=== PATIENT | male | born 1970 | race Caucasian/White ===

== ENCOUNTER 2016-12-24 14:05 | Emergency (ER) | payer OTHER ==
--- NOTE | 2016-12-24 14:58 | ED ORDER SUMMARY ---
..... Patient: BLAZE RICHARDSON OrderSheet [facility] VisitID: [id number] [address] [place] [address] 46y, M Registration Date/Time: 12/24/2016 ORDER SHEET Weight: 77.1 kg (stated) Allergies: No Known Drug Allergy GENERAL ORDERS: MEDICATION ORDERS: Tramadol PO 50 mg (NOW) (14:56 12/24/2016 Mike Montiel) (15:15 Valerie Porter) IV FLUIDS: ORDER SHEET NOTES: [Electronically signed by Mattie Nelson P.A.-C (15:05 12/24/2016)] [Electronically signed by Josesito Ricci R.N. (15:24 12/24/2016)] [Electronically locked/signed by Josesito Ricci R.N. (15:24 12/24/2016)]
--- NOTE | 2016-12-24 14:58 | ED NURSING NOTES ---
Clinical Report - Nurses [facility] [address] [place] [address] 12/24/2016 14:10 Patient: BLAZE RICHARDSON TRIAGE Triage time 14:30 Dec 24 2016. Acuity: LEVEL 3. Chief Complaint: BACK PAIN. Alert. THERESA COMA SCORE: Blackwell Coma Scale: 15- eyes open spontaneously (4); best verbal response- oriented x 4 (5); best motor response- obeys commands (6). --14:46 Josesito Ricci R.N. 14:33 12/24/16. BP: 114/76. HR: 72. RR: 16. O2 saturation: 100% on room air. Temp: 98.3 F. Pain level now: 10. Additional comments: Back pain. --14:46 Josesito Ricci R.N. Weight: 77.1 kg stated. Height/Length: 70 inches Per Patient. BMI: 24.4. --14:33 Josesito Ricci R.N. Medications None. --14:39 Josesito Ricci R.N. Allergies No Known Drug Allergy. --14:40 Josesito Ricci R.N. Medication/allergy information source: the patient. --14:46 Josesito Ricci R.N. History Arrived by private vehicle. Historian: patient. Unaccompanied. Primary physician (none). ( Back Pain one his (R) side low back from a recent fall about 6-7 days ago. Pt states that he is Bipolar and the pain makes his anxiety more intolerable.). Onset. (about 6 days ago). He has had mild trouble walking (Too painful to walk very far.). History of recent trauma (moderate)- fall. Occurred at home. 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 PAST MEDICAL HX: Tetanus status: unknown. Immunizations: status is unknown. SURGERY HX: No history of previous surgery. SOCIAL HX: Light tobacco smoker (cigarette)- less than 1/2 a pack per day. No alcohol use or drug use. No infectious disease exposure. ABUSE ASSESSMENT: No report of abuse. FALL RISK ASSESSMENT: Fall risk assessment completed. No fall risk identified. NUTRITIONAL RISK ASSESSMENT: The nutritional risk assessment revealed no deficiencies. FUNCTIONAL ASSESSMENT: Functional assessment: no impairments noted. LEARNING NEEDS ASSESSMENT: The learning needs assessment revealed no barriers. SKIN INTEGRITY ASSESSMENT: Skin integrity risk assessment completed. No skin integrity risk identified. --14:46 Josesito Ricci R.N. PROBLEMS: Schizophrenia. Anxiety Reaction. Abscess. Back Injury. Back Pain. Neck Pain. --14:42 Josesito Ricci R.N. ADDITIONAL SURGERIES: Dental Surgery. --14:42 Josesito Ricci R.N. Interventions ID band on patient. To treatment room. --14:46 Josesito Ricci R.N. PHYSICAL ASSESSMENT Ambulatory to room. GENERAL / NEURO / PSYCH: Alert. Oriented X 4. RESPIRATORY: Respirations not labored. CVS: Normal heart rate and rhythm. GI / : Abdomen soft and nontender. EXTREMITIES: Sensation intact in extremities. ROM of extremities within normal limits. BACK: Vertebral point tenderness over the lumbar spine. Soft tissue tenderness in the right lower lumbar paraspinous region. --14:47 Josesito Ricci R.N. NURSING PROGRESS NOTES Reassurance given to the patient. Patient identifiers checked. Call light placed in reach. Side rails up x 1. Bed placed in lowest position. Brakes of bed on. Patient ready for evaluation- chart flagged and PA notified. --14:47 Josesito Ricci R.N. 15:05 12/24/2016 Tramadol (TraMADol HCl) PO Tablets 50 mg given. Allergies verified, confirmed 5 rights and sedative warning given to the patient. --15:15 Josesito Ricci R.N. Locked/Released at 12/24/2016 15:24 by Josesito Ricci R.N.
--- NOTE | 2016-12-24 14:58 | ED ORDER SUMMARY ---
..... Patient: BLAZE RICHARDSON OrderSheet [facility] VisitID: [id number] [address] [place] [address] 46y, M Registration Date/Time: 12/24/2016 ORDER SHEET Weight: 77.1 kg (stated) Allergies: No Known Drug Allergy GENERAL ORDERS: MEDICATION ORDERS: Tramadol PO 50 mg (NOW) (14:56 12/24/2016 Mike Montiel) (15:15 Valerie Porter) IV FLUIDS: ORDER SHEET NOTES: [Electronically signed by Mattie Nelson P.A.-C (15:05 12/24/2016)] [Electronically signed by Josesito Ricci R.N. (15:24 12/24/2016)] [Electronically locked/signed by Josesito Ricci R.N. (15:24 12/24/2016)]
--- NOTE | 2016-12-24 14:58 | ED CLINICAL REPORT ---
Clinical Report - Physicians/Mid Levels [facility] [address] [place] [address] 12/24/2016 14:10 Patient: BLAZE RICHARDSON Time Seen: 14:34 Dec 24 2016. Arrived- By private vehicle. Historian- patient. HISTORY OF PRESENT ILLNESS Chief Complaint: BACK PAIN. The quality is noted to be "pain". It is still present. No bladder dysfunction, bowel dysfunction or sensory loss. Additional history - patient with history of chronic low back pain, one week previously had a ground-level fall, and has had worsening of his back pain symptoms. Denies radiation of pain. Denies any urgency or frequency. Denies incontinence. Patient denies an injury. REVIEW OF SYSTEMS No fever, chills, difficulty with urination, urinary frequency or vaginal discharge. No cough. All systems otherwise negative, except as recorded above. SOCIAL HISTORY Smoker- current status unknown. ADDITIONAL NOTES The nursing notes have been reviewed. PHYSICAL EXAM Vital Signs: 12/24/2016 14:33 BP: 114/76. HR: 72. RR: 16. O2 saturation: 100%. Temp: 98.3 F. Pain level now: 6/10. Appearance: Alert. HEENT: Normal external inspection. Neck: Normal inspection. CVS: Heart sounds normal. Pulses normal. Respiratory: No respiratory distress. Breath sounds normal. Abdomen: No visible injury. Soft. Back: Vertebral point tenderness. Mild soft tissue tenderness in the left upper and lower lumbar area. No limitation in ROM. (+DTR). Skin: Skin warm. No rash. Neuro: Oriented X 3. PROGRESS AND PROCEDURES Course of Care: There are no risks for spinal epidural abscess or hematoma as patient is without any risk factors such as IVDA or evidence of active infection, no midline tenderness to percussion. Hence I do not feel emergent imaging with an MRI is indicated. However I did discuss with the patient that if these symptoms develop, or if the pain does not resolve an MRI may need to be done outpatient, or in the ED if symptoms worsen acutely or new onset of the above mentioned symptoms develop. Patient is stable. Patient/family counseled. Disposition: Discharged. CLINICAL IMPRESSION Acute lumbar strain. INSTRUCTIONS ([address], [place] [address] ). Prescription Medications: Motrin 800 mg tablets: take 1 tablet orally every 8 hours for 3 days, as needed for pain. Dispense ten (10). No refill. Substitution is permissible. Ultram 50 mg: take 1 orally every 6 hours for 3 days. Dispense fifteen (15). No refills. Substitution is permissible. (Electronically signed by Mattie Nelson P.A.-C 12/24/2016 15:05)
--- NOTE | 2016-12-24 14:58 | ED CLINICAL REPORT ---
Clinical Report - Physicians/Mid Levels [facility] [address] [place] [address] 12/24/2016 14:10 Patient: BLAZE RICHARDSON Time Seen: 14:34 Dec 24 2016. Arrived- By private vehicle. Historian- patient. HISTORY OF PRESENT ILLNESS Chief Complaint: BACK PAIN. The quality is noted to be "pain". It is still present. No bladder dysfunction, bowel dysfunction or sensory loss. Additional history - patient with history of chronic low back pain, one week previously had a ground-level fall, and has had worsening of his back pain symptoms. Denies radiation of pain. Denies any urgency or frequency. Denies incontinence. Patient denies an injury. REVIEW OF SYSTEMS No fever, chills, difficulty with urination, urinary frequency or vaginal discharge. No cough. All systems otherwise negative, except as recorded above. SOCIAL HISTORY Smoker- current status unknown. ADDITIONAL NOTES The nursing notes have been reviewed. PHYSICAL EXAM Vital Signs: 12/24/2016 14:33 BP: 114/76. HR: 72. RR: 16. O2 saturation: 100%. Temp: 98.3 F. Pain level now: 6/10. Appearance: Alert. HEENT: Normal external inspection. Neck: Normal inspection. CVS: Heart sounds normal. Pulses normal. Respiratory: No respiratory distress. Breath sounds normal. Abdomen: No visible injury. Soft. Back: Vertebral point tenderness. Mild soft tissue tenderness in the left upper and lower lumbar area. No limitation in ROM. (+DTR). Skin: Skin warm. No rash. Neuro: Oriented X 3. PROGRESS AND PROCEDURES Course of Care: There are no risks for spinal epidural abscess or hematoma as patient is without any risk factors such as IVDA or evidence of active infection, no midline tenderness to percussion. Hence I do not feel emergent imaging with an MRI is indicated. However I did discuss with the patient that if these symptoms develop, or if the pain does not resolve an MRI may need to be done outpatient, or in the ED if symptoms worsen acutely or new onset of the above mentioned symptoms develop. Patient is stable. Patient/family counseled. Disposition: Discharged. CLINICAL IMPRESSION Acute lumbar strain. INSTRUCTIONS ([address], [place] [address] ). Prescription Medications: Motrin 800 mg tablets: take 1 tablet orally every 8 hours for 3 days, as needed for pain. Dispense ten (10). No refill. Substitution is permissible. Ultram 50 mg: take 1 orally every 6 hours for 3 days. Dispense fifteen (15). No refills. Substitution is permissible. (Electronically signed by Mattie Nelson P.A.-C 12/24/2016 15:05)
--- NOTE | 2016-12-24 14:58 | ED NURSING NOTES ---
Clinical Report - Nurses [facility] [address] [place] [address] 12/24/2016 14:10 Patient: BLAZE RICHARDSON TRIAGE Triage time 14:30 Dec 24 2016. Acuity: LEVEL 3. Chief Complaint: BACK PAIN. Alert. THERESA COMA SCORE: Faison Coma Scale: 15- eyes open spontaneously (4); best verbal response- oriented x 4 (5); best motor response- obeys commands (6). --14:46 Josesito Ricci R.N. 14:33 12/24/16. BP: 114/76. HR: 72. RR: 16. O2 saturation: 100% on room air. Temp: 98.3 F. Pain level now: 10. Additional comments: Back pain. --14:46 Josesito Ricci R.N. Weight: 77.1 kg stated. Height/Length: 70 inches Per Patient. BMI: 24.4. --14:33 Josesito Ricci R.N. Medications None. --14:39 Josesito Ricci R.N. Allergies No Known Drug Allergy. --14:40 Josesito Ricci R.N. Medication/allergy information source: the patient. --14:46 Josesito Ricci R.N. History Arrived by private vehicle. Historian: patient. Unaccompanied. Primary physician (none). ( Back Pain one his (R) side low back from a recent fall about 6-7 days ago. Pt states that he is Bipolar and the pain makes his anxiety more intolerable.). Onset. (about 6 days ago). He has had mild trouble walking (Too painful to walk very far.). History of recent trauma (moderate)- fall. Occurred at home. 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 PAST MEDICAL HX: Tetanus status: unknown. Immunizations: status is unknown. SURGERY HX: No history of previous surgery. SOCIAL HX: Light tobacco smoker (cigarette)- less than 1/2 a pack per day. No alcohol use or drug use. No infectious disease exposure. ABUSE ASSESSMENT: No report of abuse. FALL RISK ASSESSMENT: Fall risk assessment completed. No fall risk identified. NUTRITIONAL RISK ASSESSMENT: The nutritional risk assessment revealed no deficiencies. FUNCTIONAL ASSESSMENT: Functional assessment: no impairments noted. LEARNING NEEDS ASSESSMENT: The learning needs assessment revealed no barriers. SKIN INTEGRITY ASSESSMENT: Skin integrity risk assessment completed. No skin integrity risk identified. --14:46 Josesito Ricci R.N. PROBLEMS: Schizophrenia. Anxiety Reaction. Abscess. Back Injury. Back Pain. Neck Pain. --14:42 Josesito Ricci R.N. ADDITIONAL SURGERIES: Dental Surgery. --14:42 Josesito Ricci R.N. Interventions ID band on patient. To treatment room. --14:46 Josesito Ricci R.N. PHYSICAL ASSESSMENT Ambulatory to room. GENERAL / NEURO / PSYCH: Alert. Oriented X 4. RESPIRATORY: Respirations not labored. CVS: Normal heart rate and rhythm. GI / : Abdomen soft and nontender. EXTREMITIES: Sensation intact in extremities. ROM of extremities within normal limits. BACK: Vertebral point tenderness over the lumbar spine. Soft tissue tenderness in the right lower lumbar paraspinous region. --14:47 Josesito Ricci R.N. NURSING PROGRESS NOTES Reassurance given to the patient. Patient identifiers checked. Call light placed in reach. Side rails up x 1. Bed placed in lowest position. Brakes of bed on. Patient ready for evaluation- chart flagged and PA notified. --14:47 Josesito Ricci R.N. 15:05 12/24/2016 Tramadol (TraMADol HCl) PO Tablets 50 mg given. Allergies verified, confirmed 5 rights and sedative warning given to the patient. --15:15 Josesito Ricci R.N. Locked/Released at 12/24/2016 15:24 by Josesito Ricci R.N.
--- NOTE | 2016-12-24 15:25 | ED MED RECONCILIATION SUMMARY ---
Patient: BLAZE RICHARDSON Medication Reconciliation Report [facility] VisitID: [id number] [address] [place] [address] 46y, M Registration Date/Time: 12/24/2016 Weight: 77.1 kg Height/Length: 70 in. BMI: 24.4 ALLERGIES: No Known Drug Allergy The patient's Home Medications are listed below: NONE. The source(s) of the original Home Medication information: patient The following Medications were given to the patient in the Emergency Department: Tramadol [PO] PO 50 mg, administered: 12/24/2016 3:05:00 PM The following Medications were prescribed to the patient: Motrin 800 mg tablets: take 1 tablet orally every 8 hours for 3 days, as needed for pain. Dispense ten (10). No refill. Substitution is permissible. -- Mattie Nelson, P.A.-C Ultram 50 mg: take 1 orally every 6 hours for 3 days. Dispense fifteen (15). No refills. Substitution is permissible. -- Mattie Nelson, P.A.-C
--- NOTE | 2016-12-24 15:25 | ED MAR SUMMARY ---
..... Medication Administration Record [facility] [address] [place] [address] Patient: BLAZE RICHARDSON Visit ID: [id number] 46y, M Weight: 77.1 kg Height/Length: 70 in BMI: 24.4 ALLERGIES: No Known Drug Allergy Given 15:05 12/24/2016 Josesito Ricci R.N. Medication Administered: TRAMADOL [PO] (TRAMADOL HCL), Dose: 50 mg Tablets PO. Medication Ordered: Tramadol PO 50 mg (NOW).
--- NOTE | 2016-12-24 15:25 | ED DISCHARGE INSTRUCTIONS ---
Patient: BLAZE RICHARDSON General Instructions [facility] VisitID: [id number] [address] [place] [address] 46y, M Registration Date/Time: 12/24/2016 Acute lumbar strain. INSTRUCTIONS ([address] [place] [address] ). Prescription Medications: Motrin 800 mg tablets: take 1 tablet orally every 8 hours for 3 days, as needed for pain. Dispense ten (10). No refill. Substitution is permissible. Ultram 50 mg: take 1 orally every 6 hours for 3 days. Dispense fifteen (15). No refills. Substitution is permissible. ADDITIONAL INFORMATION Back Pain [Acute Or Chronic] Back pain is usually caused by an injury to the muscles or ligaments of the spine. Sometimes the disks that separate each bone in the spine may bulge and cause pain by pressing on a nearby nerve. Back pain may also appear after a sudden twisting/bending force (such as in a car accident), after a simple awkward movement, or lifting something heavy with poor body positioning. In either case, muscle spasm is often present and adds to the pain. Acute back pain usually gets better in one to two weeks. Back pain related to disk disease, arthritis in the spinal joints or spinal stenosis (narrowing of the spinal canal) can become chronic and last for months or years. Unless you had a physical injury (for example, a car accident or fall) X-rays are usually not ordered for the initial evaluation of back pain. If pain continues and does not respond to medical treatment, x-rays and other tests may be performed at a later time. Home Care: You may need to stay in bed the first few days. But, as soon as possible, begin sitting or walking to avoid problems with prolonged bed rest (muscle weakness, worsening back stiffness and pain, blood clots in the legs). When in bed, try to find a position of comfort. A firm mattress is best. Try lying flat on your back with pillows under your knees. You can also try lying on your side with your knees bent up towards your chest and a pillow between your knees. Avoid prolonged sitting. This puts more stress on the lower back than standing or walking. During the first two days after injury, apply an ICE PACK to the painful area for 20 minutes every 2-4 hours. This will reduce swelling and pain. HEAT (hot shower, hot bath or heating pad) works well for muscle spasm. You can start with ice, then switch to heat after two days. Some patients feel best alternating ice and heat treatments. Use the one method that feels the best to you. You may use acetaminophen (Tylenol) or ibuprofen (Motrin, Advil) to control pain, unless another pain medicine was prescribed. [NOTE: If you have chronic liver or kidney disease or ever had a stomach ulcer or GI bleeding, talk with your doctor before using these medicines.] Be aware of safe lifting methods and do not lift anything over 15 pounds until all the pain is gone. Follow Up with your doctor or this facility if your symptoms do not start to improve after one week. Physical therapy may be needed. [NOTE: If X-rays were taken, they will be reviewed by a radiologist. You will be notified of any new findings that may affect your care.] Get Prompt Medical Attention if any of the following occur: Pain becomes worse or spreads to your legs Weakness or numbness in one or both legs Loss of bowel or bladder control Numbness in the groin or genital area You have been given the following additional information: Back Pain (Acute Or Chronic) (Electronically signed by Mattie Nelson P.A.-C 12/24/2016 15:05)
--- NOTE | 2016-12-24 15:25 | ED DISCHARGE INSTRUCTIONS ---
Patient: BLAZE RICHARDSON General Instructions [facility] VisitID: [id number] [address] [place] [address] 46y, M Registration Date/Time: 12/24/2016 Acute lumbar strain. INSTRUCTIONS ([address] [place] [address] ). Prescription Medications: Motrin 800 mg tablets: take 1 tablet orally every 8 hours for 3 days, as needed for pain. Dispense ten (10). No refill. Substitution is permissible. Ultram 50 mg: take 1 orally every 6 hours for 3 days. Dispense fifteen (15). No refills. Substitution is permissible. ADDITIONAL INFORMATION Back Pain [Acute Or Chronic] Back pain is usually caused by an injury to the muscles or ligaments of the spine. Sometimes the disks that separate each bone in the spine may bulge and cause pain by pressing on a nearby nerve. Back pain may also appear after a sudden twisting/bending force (such as in a car accident), after a simple awkward movement, or lifting something heavy with poor body positioning. In either case, muscle spasm is often present and adds to the pain. Acute back pain usually gets better in one to two weeks. Back pain related to disk disease, arthritis in the spinal joints or spinal stenosis (narrowing of the spinal canal) can become chronic and last for months or years. Unless you had a physical injury (for example, a car accident or fall) X-rays are usually not ordered for the initial evaluation of back pain. If pain continues and does not respond to medical treatment, x-rays and other tests may be performed at a later time. Home Care: You may need to stay in bed the first few days. But, as soon as possible, begin sitting or walking to avoid problems with prolonged bed rest (muscle weakness, worsening back stiffness and pain, blood clots in the legs). When in bed, try to find a position of comfort. A firm mattress is best. Try lying flat on your back with pillows under your knees. You can also try lying on your side with your knees bent up towards your chest and a pillow between your knees. Avoid prolonged sitting. This puts more stress on the lower back than standing or walking. During the first two days after injury, apply an ICE PACK to the painful area for 20 minutes every 2-4 hours. This will reduce swelling and pain. HEAT (hot shower, hot bath or heating pad) works well for muscle spasm. You can start with ice, then switch to heat after two days. Some patients feel best alternating ice and heat treatments. Use the one method that feels the best to you. You may use acetaminophen (Tylenol) or ibuprofen (Motrin, Advil) to control pain, unless another pain medicine was prescribed. [NOTE: If you have chronic liver or kidney disease or ever had a stomach ulcer or GI bleeding, talk with your doctor before using these medicines.] Be aware of safe lifting methods and do not lift anything over 15 pounds until all the pain is gone. Follow Up with your doctor or this facility if your symptoms do not start to improve after one week. Physical therapy may be needed. [NOTE: If X-rays were taken, they will be reviewed by a radiologist. You will be notified of any new findings that may affect your care.] Get Prompt Medical Attention if any of the following occur: Pain becomes worse or spreads to your legs Weakness or numbness in one or both legs Loss of bowel or bladder control Numbness in the groin or genital area You have been given the following additional information: Back Pain (Acute Or Chronic) (Electronically signed by Mattie Nelson P.A.-C 12/24/2016 15:05)
--- NOTE | 2016-12-24 15:25 | ED MAR SUMMARY ---
..... Medication Administration Record [facility] [address] [place] [address] Patient: BLAZE RICHARDSON Visit ID: [id number] 46y, M Weight: 77.1 kg Height/Length: 70 in BMI: 24.4 ALLERGIES: No Known Drug Allergy Given 15:05 12/24/2016 Josesito Ricci R.N. Medication Administered: TRAMADOL [PO] (TRAMADOL HCL), Dose: 50 mg Tablets PO. Medication Ordered: Tramadol PO 50 mg (NOW).
--- NOTE | 2016-12-24 15:25 | ED MED RECONCILIATION SUMMARY ---
Patient: BLAZE RICHARDSON Medication Reconciliation Report [facility] VisitID: [id number] [address] [place] [address] 46y, M Registration Date/Time: 12/24/2016 Weight: 77.1 kg Height/Length: 70 in. BMI: 24.4 ALLERGIES: No Known Drug Allergy The patient's Home Medications are listed below: NONE. The source(s) of the original Home Medication information: patient The following Medications were given to the patient in the Emergency Department: Tramadol [PO] PO 50 mg, administered: 12/24/2016 3:05:00 PM The following Medications were prescribed to the patient: Motrin 800 mg tablets: take 1 tablet orally every 8 hours for 3 days, as needed for pain. Dispense ten (10). No refill. Substitution is permissible. -- Mattie Nelson, P.A.-C Ultram 50 mg: take 1 orally every 6 hours for 3 days. Dispense fifteen (15). No refills. Substitution is permissible. -- Mattie Nelson, P.A.-C
== END 2016-12-24 15:10 | disposition home or self-care (01) ==
LOC: ED SRH 14:05
DX: S39.012A Strain of muscle, fascia and tendon of lower back, initial encounter (principal); X58.XXXA Exposure to other specified factors, initial encounter; Y93.9 Activity, unspecified; Y92.9 Unspecified place or not applicable; Y99.9 Unspecified external cause status; F17.210 Nicotine dependence, cigarettes, uncomplicated